=== PATIENT | female | born 1985 ===

== ENCOUNTER 2018-07-31 17:54 | Emergency (ER) | payer OTHER ==
[2018-07-31 19:30] LABS: VENOUS BLOOD GAS BASE EXCESS 2.1 mmol/L (0.0-2.0); VENOUS BLOOD GAS PCO2 54 mmHg (40-60); VENOUS BLOOD GAS PO2 15 mm/Hg (30-55); VENOUS BLOOD PH 7.34 (7.32-7.43)
[2018-07-31 19:35] LABS: BASO # 0.1 K/uL (0.0-0.2); BASO % 0.9 % (0.0-2.0); EOS # 0.2 K/uL (0.0-0.7); EOS % 1.4 % (0.0-4.0); LYMPH # 2.7 K/uL (1.0-4.3); LYMPH % 23.4 % (20.0-40.0); MEAN CELL VOLUME 89.2 fl (81.0-99.0); MEAN CORPUSCULAR HEMOGLOBIN 29.4 pg (27.0-31.0); MEAN CORPUSCULAR HGB CONC 32.9 g/dL (33.0-37.0); MEAN PLATELET VOLUME 8.2 fl (7.2-11.7); MONO # 0.9 K/uL (0.0-0.8); MONO % 7.8 % (0.0-10.0); NEUT # 7.7 K/uL (1.8-7.0); NEUT % 66.5 % (50.0-75.0); RBC 4.41 Mil/uL (3.80-5.20); RED CELL DISTRIBUTION WIDTH 14.1 % (11.5-14.5); WHITE BLOOD COUNT 11.6 K/uL (4.8-10.8)
[2018-07-31 19:47] LABS: ALB/GLOB RATIO 1.4 (1.0-2.1); ALBUMIN 4.4 g/dL (3.5-5.0); ALT/SGPT 29 U/L (9-52); AST/SGOT 27 U/L (14-36); BLOOD UREA NITROGEN 9 mg/dl (7-17); CALCIUM 9.3 mg/dL (8.4-10.2); GFR NON-AFRICAN AMERICAN > 60; LIPASE 89 U/L (23-300)
[2018-07-31 19:53] LABS: SQUAMOUS EPITHIAL 46 /hpf (0-5); URINE BILIRUBIN NEGATIVE (NEGATIVE); URINE BLOOD NEGATIVE (NEGATIVE); URINE CLARITY CLOUDY (Clear); URINE COLOR YELLOW (YELLOW); URINE GLUCOSE (UA) NEG (Normal); URINE LEUKOCYTE ESTERASE SMALL Leu/uL (Negative); URINE PROTEIN NEGATIVE (NEGATIVE); URINE UROBILINOGEN 0.2-1.0 mg/dL (0.2-1.0)
--- NOTE | 2018-07-31 20:17 | ED PDOC ---
HPI: Abdomen Time Seen by Provider: 07/31/18 19:06 Chief Complaint (Nursing): Abdominal Pain Chief Complaint (Provider): abdominal pain History Per: Patient History/Exam Limitations: no limitations Onset/Duration Of Symptoms: Hrs (today) Location Of Pain/Discomfort: RLQ Associated Symptoms: denies: Nausea, Vomiting, Urinary Symptoms Additional Complaint(s): Yani Guerrero is a 33 year old female, with no significant past medical history, who presents to the emergency department complaining of RLQ abdominal pain onset today. Patient is x3 weeks , LMP was beginning of June and this is her 1st . Patient reports she took a test x3 weeks ago which was positive. She has been waiting to be signed up for insurance to see PMD. She denies any previous history of STDs, nausea, vomit, dysuria or other medical complaints. PMD: None provided. Past Medical History Reviewed: Historical Data, Nursing Documentation, Vital Signs Vital Signs: Last Vital Signs Temp 98.7 F 07/31/18 17:57 Pulse 78 07/31/18 17:57 Resp 18 07/31/18 17:57 BP 125/73 07/31/18 17:57 Pulse Ox 99 07/31/18 17:57 - Medical History PMH: No Chronic Diseases - Surgical History Surgical History: No Surg Hx - Family History Family History: States: Unknown Family Hx - Home Medications Home Medications: Ambulatory Orders Medication Instructions Recorded Cephalexin [Keflex] 500 mg PO BID #14 capsule 07/31/18 - Allergies Allergies/Adverse Reactions: Allergies Allergy/AdvReac Type Severity Reaction Status Date / Time No Known Allergies Allergy Verified 07/31/18 18:09 Review of Systems ROS Statement: Except As Marked, All Systems Reviewed And Found Negative Gastrointestinal: Positive for: Abdominal Pain (RLQ). Negative for: Nausea, Vo miting Genitourinary Female: Negative for: Dysuria Physical Exam - Reviewed Nursing Documentation Reviewed: Yes Vital Signs Reviewed: Yes - Physical Exam Appears: Positive for: No Acute Distress Head Exam: Positive for: ATRAUMATIC, NORMAL INSPECTION, NORMOCEPHALIC Skin: Positive for: Normal Color, Warm, Dry Eye Exam: Positive for: Normal appearance, EOMI, PERRL Neck: Positive for: Normal, Painless ROM Cardiovascular/Chest: Positive for: Regular Rate, Rhythm. Negative for: Murmur Respiratory: Positive for: Normal Breath Sounds. Negative for: Respiratory Distress Gastrointestinal/Abdominal: Positive for: Tenderness (RLQ). Negative for: Guarding, Rebound Back: Positive for: Normal Inspection. Negative for: L CVA Tenderness, R CVA Tenderness, Vertebral Tenderness Extremity: Positive for: Normal ROM (upper and lower extremities). Negative for: Deformity, Swelling Neurologic/Psych: Positive for: Alert, Oriented - Laboratory Results Result Diagrams: 07/31/18 19:10 07/31/18 19:10 - ECG O2 Sat by Pulse Oximetry: 99 (RA) Pulse Ox Interpretation: Normal Medical Decision Making Medical Decision Making: Time: 19:06 Initial Impression: Work up for ectopic . labs and UA sent. US and reassess patient. Initial Plan: --VBG Shock Panel --Beta-HCG Quantitative --CMP --Lipase --CBC w/ differential --Urinalysis --Preg 1st Trimester/OB TV [US] --Reevaluation 20:39 Abdomen Ultrasound The uterus measures 10.4 x 5.4 x 7.1 cm. There is evidence of a live intrauterine gestation without cardiac activity identified. heart rate is 163 bpm. Cervix appears closed. The gestational sac diameter is 4.39 cm corresponding to 9 weeks and 6 days. The pole is 3.19 cm corresponding to 10 weeks and 1 day. The right ovary measures 3.3 x 1.7 x 2.8 cm and the left ovary measures 2.7 x 1.4 x 2.5 cm. There is no adnexal mass or free fluid collection. Impression: Single live intrauterine gestation of approximately 10 weeks. No adnexal mass or free fluid collection within the pelvis. Close clinical correlation and follow-up study recommended. 22:26 Labs within normal limits. US shows intrauterine with no adnexal mass or abnormalities seen in RLQ. Patient given [facility] and return parameters discussed. Patient advised to take Tylenol for pain. ----- Scribe Attestation: Documented by Florencio Eagle, acting as a scribe for Anuradha Almanza MD. Provider Scribe Attestation: All medical record entries made by the Scribe were at my direction and personally dictated by me. I have reviewed the chart and agree that the record accurately reflects my personal performance of the history, physical exam, medical decision making, and the department course for this patient. I have also personally directed, reviewed, and agree with the discharge instructions and disposition. Disposition - Clinical Impression Clinical Impression: Abdominal pain during , Urinary tract infection affecting care of mother in first trimester, antepartum - Disposition [facility]errals[facility]Outside] Disposition: Routine/Home Disposition Time: 22:26 Condition: STABLE Additional Instructions: Take Tylenol as needed for pain. Follow up with the [facility] for visits. Return to the emergency department if the pain worsens or new symptoms (fever, vomiting, diarrhea) develop. Take antibiotics as prescribed for urinary tract infection. Prescriptions: Cephalexin [Keflex] 500 mg PO BID #14 capsule Instructions: Urinary Tract Infection, Adult (DC) Forms: [employer] (Polish), [employer] (Yoruba) Print Language: CITIZ[place]
[2018-07-31 22:51] VITALS: BP 101/61; PULSE 64; RESP 16; TEMP 98.4
--- NOTE | 2018-08-01 09:56 | US ---
Date of service: 07/31/2018 PROCEDURE: OB Pelvic Ultrasound HISTORY: RLQ pain, 3 weeks preg LMP: COMPARISON: None available. FINDINGS: UTERUS: There is a single live intrauterine gestation noted. Gestational sac: Sac diameter 44 mm equivalent to 9 weeks 6 days gestational age. [place]-rump length 32 mm equivalent to 10 weeks 1 day. Heart rate: 163 bpm. age (Ultrasound estimated): 10 weeks 0 days [place]-gestational hemorrhage: None. Date of delivery (Ultrasound estimated) : 02/26/2019 3 mm yolk sac visualized. Uterus measures 10.4 x 5.4 x 7.1 cm. Normal in size and appearance. CERVIX: Measures 3.5 cm. Long and closed. No cervical abnormality seen. RIGHT OVARY: Measures 3.3 x 1.7 x 2.8 cm. No mass lesion. Normal flow. LEFT OVARY: Measures 2.7 x 1.4 x 2.5 cm. No solid mass. Normal flow. FREE FLUID: None. OTHER FINDINGS: None. IMPRESSION: Single live intrauterine gestation of approximately 10 weeks 0 days gestational age. No subchorionic hemorrhage. heart rate 163. SANDRO 02/26/2019. The preliminary findings for this examination were reported by [facility] at 8:39 p.m. on 07/31/2018. There is concurrence of this report with the preliminary findings.
[2018-08-05 10:16] VITALS: O2SAT 99
== END 2018-07-31 22:58 | disposition home or self-care (01) ==
LOC: H.ER 17:54
DX: O26.91 Pregnancy related conditions, unspecified, first trimester (principal); O23.41 Unspecified infection of urinary tract in pregnancy, first trimester; Z3A.09 9 weeks gestation of pregnancy